=== PATIENT | female | born 1990 | race Caucasian/White ===

== ENCOUNTER 2018-05-10 10:33 | Inpatient (IN) | payer BC ==
[2018-07-12] MEDS ORDERED: Acetaminophen 500 MG TAB PO PRN (01:00)
[2018-07-12] MEDS ORDERED: Ondansetron PF 4 MG/2 ML Vial IVP PRN ×2 (01:00→15:43)
[2018-07-12] MEDS ORDERED: Docusate 100 MG CAP PO PRN (01:00)
[2018-07-12] MEDS ORDERED: NS w/ Oxytocin 10 units 500 ML IV SCH (01:00)
[2018-07-12] MEDS ORDERED: Diphenoxylate HCl/Atropine Tablet PO PRN ×2 (01:00)
[2018-07-12] MEDS ORDERED: Ibuprofen 800 MG TAB PO PRN (01:00)
[2018-07-12] MEDS ORDERED: Misoprostol 200 MCG TAB PR PRN (01:00)
[2018-07-12] MEDS ORDERED: Lidocaine 1% (PF) 30 ML VIAL SC PRN (01:00)
[2018-07-12] MEDS ORDERED: HYDROcodone/Acetaminophen 5/325 mg Tablet PO PRN ×2 (01:00)
[2018-07-12] MEDS ORDERED: Promethazine HCl 25 MG/ML VIAL IM PRN ×2 (01:00→15:43)
[2018-07-12] MEDS ORDERED: Zolpidem Tartrate 5 MG TAB PO PRN (01:00)
[2018-07-12] MEDS ORDERED: NS / Oxytocin 40 units/1000ml 1,000 ML IV PRN (01:00)
[2018-07-12 01:19] VITALS: BMI 37.8
[2018-07-12] MEDS: Lactated Ringer's 1,000 ML IV SCH ×4 (01:25→18:10)
[2018-07-12 01:28] LABS: Hemoglobin 12.1 g/dL (12.0-16.0); Mean Corpuscular HGB CONC 33.7 g/dL (32.0-36.0); Mean Corpuscular Hemoglobin 28.5 pg (27.0-31.0); Mean Corpuscular Volume 84.5 fL (78.0-98.0); Mean Platelet Volume 10.2 fL (7.4-10.4); Platelet Count 141 thou/uL (130-400); RBC Distribution Width 12.6 % (11.5-14.5); Red Blood Cell (RBC) Count 4.25 mill/uL (4.20-5.40); White Blood Cell (WBC) Count 8.6 thou/uL (4.8-10.8)
[2018-07-12] MEDS: Misoprostol 100 MCG TAB VAG SCH ×5 (01:40→18:11)
[2018-07-12 02:08] LABS: HBSAg Index 0.34 S/CO (0-0.99); Hep B Surf Ag Non-Reactive S/CO (NonReactive)
[2018-07-12 04:03] LABS: Syphilis Antibody Nonreactive (Nonreactive); Syphilis Antibody Index 0.02 S/CO (<1.00 Non-Reactive)
[2018-07-12] MEDS: NS w/ Oxytocin 10 units 500 ML IV SCH (08:35)
[2018-07-12] MEDS: Butorphanol Tartrate 1 MG/ML VIAL SLOW IVP PRN ×3 (10:20→15:04)
[2018-07-12] MEDS ORDERED: Fentanyl 4 mcg/Bup 0.1% Cadd 100 ML ONE ×2 (14:15→20:04)
[2018-07-12] MEDS ORDERED: Acetaminophen 325 MG TAB PO PRN (15:43)
[2018-07-12] MEDS ORDERED: diphenhydrAMINE 50 MG/ML VIAL IVP PRN (15:43)
[2018-07-12] MEDS ORDERED: ePHEDrine/0.9% NaCl/PF SYRINGE 50 mg/10 ml SLOW IVP PRN (15:43)
[2018-07-12] MEDS ORDERED: Lactated Ringer's 500 ML IV PRN (15:43)
[2018-07-12] MEDS ORDERED: Naloxone HCl 0.4 mg/ml Vial IVP PRN ×2 (15:43)
[2018-07-12] MEDS ORDERED: Communication Order-Pharmacy FS SCH (15:45)
[2018-07-12] MEDS ORDERED: Fentanyl 4 mcg/Bupivacaine 0.1% Cassette 100 ML EPIDURAL SCH (15:45)
[2018-07-12] MEDS ORDERED: Fentanyl 100 MCG/2 ML VIAL ONE (20:51)
[2018-07-13] MEDS ORDERED: Misoprostol 200 MCG TAB VAG PRN (00:02)
[2018-07-13] MEDS ORDERED: Bisacodyl 10 MG SUPP PR PRN (00:02)
[2018-07-13] MEDS ORDERED: Zolpidem Tartrate 5 MG TAB PO PRN (00:02)
[2018-07-13] MEDS ORDERED: Acetaminophen/Codeine 30-300mg Tablet PO PRN ×2 (00:02)
[2018-07-13] MEDS ORDERED: Preparation H Ointment 28 GM TUBE PR PRN (00:02)
[2018-07-13] MEDS ORDERED: Benzocaine-Menthol 82.5 ML CAN TOP PRN (00:02)
[2018-07-13] MEDS ORDERED: Ondansetron PF 4 MG/2 ML Vial IVP PRN (00:02)
[2018-07-13] MEDS ORDERED: diphenhydrAMINE 25 MG CAP PO PRN (00:02)
[2018-07-13] MEDS ORDERED: Lanolin Ointment 7 GM TUBE TOP PRN (00:02)
[2018-07-13] MEDS ORDERED: Milk Of Magnesia 30 ML UDCUP PO PRN (00:02)
[2018-07-13] MEDS ORDERED: NS / Oxytocin 40 units/1000ml 1,000 ML IV SCH (00:15)
[2018-07-13] MEDS: Misoprostol 100 MCG TAB VAG SCH ×2 (04:57→04:58)
[2018-07-13] MEDS: NS w/ Oxytocin 10 units 500 ML IV SCH (04:58)
[2018-07-13] MEDS: Ibuprofen 800 MG TAB PO SCH ×3 (05:09→21:29)
[2018-07-13 06:33] LABS: Hemoglobin 11.8 g/dL (12.0-16.0); Mean Corpuscular HGB CONC 33.5 g/dL (32.0-36.0); Mean Corpuscular Hemoglobin 28.4 pg (27.0-31.0); Mean Corpuscular Volume 84.7 fL (78.0-98.0); Mean Platelet Volume 10.6 fL (7.4-10.4); Platelet Count 129 thou/uL (130-400); RBC Distribution Width 12.5 % (11.5-14.5); Red Blood Cell (RBC) Count 4.17 mill/uL (4.20-5.40); White Blood Cell (WBC) Count 22.7 thou/uL (4.8-10.8)
[2018-07-13] MEDS: Prenatal Vitamin 1 TAB PO SCH (08:58)
[2018-07-13] MEDS: Docusate Calcium (SURFAK) 240 MG CAP PO SCH ×2 (08:58→21:29)
[2018-07-13] MEDS ORDERED: Adacel (T-DAP) 0.5 ML SYRINGE IM ONE (09:00)
[2018-07-13] MEDS ORDERED: Lidocaine 2% MPF 10 ML AMP (For Epidural Use) ONE (11:11)
[2018-07-13] MEDS ORDERED: Bupivacaine HCl 0.5%/Epinephrine 1:200,000/PF 30 ml Vial ONE (11:11)
[2018-07-13] MEDS ORDERED: Bupivacaine/Epinephrine 0.25% 30 ML VIAL ONE (11:11)
[2018-07-13] MEDS: Ferrous Sulfate 325 MG TAB PO SCH ×2 (13:46→18:03)
[2018-07-14] MEDS: Ibuprofen 800 MG TAB PO SCH ×2 (05:55→15:16)
[2018-07-14] MEDS: Ferrous Sulfate 325 MG TAB PO SCH (08:35)
[2018-07-14] MEDS: Docusate Calcium (SURFAK) 240 MG CAP PO SCH (10:32)
[2018-07-14] MEDS: Prenatal Vitamin 1 TAB PO SCH (10:32)
[2018-07-14 13:29] VITALS: BP 115/60; TEMP 98.7
== END 2018-07-14 15:45 | disposition home or self-care (01) | DRG 807 ==
LOC: EDSTATUS 16:12 → L&D 07-12 00:27 → 3SE 07-13 02:58
PROVIDERS: ADMIT Obstetrics & Gynecology; ATTEND Obstetrics & Gynecology
PROC: 10E0XZZ Delivery of Products of Conception, External Approach (ICD-10-PCS; principal; 2018-07-12)
PROC: 3E033VJ Introduction of Other Hormone into Peripheral Vein, Percutaneous Approach (ICD-10-PCS; 2018-07-12)
PROC: 10907ZC Drainage of Amniotic Fluid, Therapeutic from Products of Conception, Via Natural or Artificial Opening (ICD-10-PCS; 2018-07-12)
PROC: 0HQ9XZZ Repair Perineum Skin, External Approach (ICD-10-PCS; 2018-07-12)
DX: O70.0 First degree perineal laceration during delivery (principal); Z37.0 Single live birth; Z3A.39 39 weeks gestation of pregnancy
CPT/HCPCS: 36415; 51702; 85027; 86780; 86850; 86900; 86901; 87340; J0595; J0670; J2001; J2590; J3010